=== PATIENT | female | born 1950 | race African-American/Black ===

== ENCOUNTER 2018-02-06 07:00 | Day surgery (SDC) | payer OTHER, BC ==
[2018-02-05 17:32] VITALS: BMI 32.9
--- NOTE | 2018-02-06 08:37 | HP ---
History & Physical Update - History History: No Change - Physical Physical: No Change - Assessment Assessment: No Change - Plan Plan: No Change (in agreement with Dr Urrutia; Consent signed and witnessed All questions answered)
--- NOTE | 2018-02-06 08:38 | OP ---
Operative Note - Note: Operative Date: 02/06/18 Pre-Operative Diagnosis: 67yo P2 with Thick endometrium, Family history of uterine and breast CA Operation: Hysteroscopy, Cervical polypectomy, D&C Post-Operative Diagnosis: Same as Pre-op Surgeon: Shaylee Bazan Anesthesiologist/EDGE BRUSHER: Link Ma Anesthesia: MAC Specimens Removed: 1. Cervical polyp. 2. Endometrial curettings Estimated Blood Loss (mls): 10 Instrument used (Debridements only): Symphion hysteroscope Drains & Tubes with Location: Fluid defficit - 0cc Drains, Volume Out (mls): 30 Fluid Volume Replaced (mls): 300 Operative Report Dictated: Yes
[2018-02-06] MEDS ORDERED: ONDANSETRON 4 MG/2 ML VIAL IVPUSH PRN (08:39)
[2018-02-06] MEDS ORDERED: IBUPROFEN 800 MG/8 ML IJ IVPB PRN (08:39)
[2018-02-06] MEDS ORDERED: oxyCODONE HCL 5 MG TABLET PO PRN (08:39)
[2018-02-06] MEDS ORDERED: IBUPROFEN 600 MG TABLET (FP) PO PRN (08:39)
[2018-02-06] MEDS ORDERED: ELECTROLYTE-148 SOLN 1,000 ML IV SCH (08:45)
[2018-02-06] MEDS ORDERED: PROPOFOL 20 ML ONE (08:51)
[2018-02-06] MEDS ORDERED: MIDAZOLAM HCL 2 MG/2 ML SINGLE DOSE VIAL ONE (08:51)
[2018-02-06] MEDS ORDERED: LIDOCAINE HCL/PF 2% SDV 5ML VIAL ONE ×2 (08:52→09:00)
[2018-02-06] MEDS ORDERED: KETOROLAC TROMETHAMINE 30 MG/1 ML VIAL ONE (09:00)
[2018-02-06] MEDS ORDERED: DEXAMETHASONE SOD PHOSPHATE 4 MG/1 ML VIAL ONE (09:00)
[2018-02-06] MEDS ORDERED: LIDOCAINE HCL 2% JELLY (5 ML/TUBE) ONE (09:00)
[2018-02-06] MEDS ORDERED: LACTATED RINGERS SOLUTION 1,000 ML IV SCH (09:45)
[2018-02-06 12:56] VITALS: BP 137/65; PULSE 56; TEMP 98.2
--- NOTE | 2018-02-06 23:45 | OP ---
DATE OF OPERATION: 02/06/2018 PREOPERATIVE DIAGNOSIS: A 37-year-old, para 2, with thick endometrium, family history of uterine and breast cancer. OPERATION: Hysteroscopy, cervical polypectomy, dilation and curettage. POSTOPERATIVE DIAGNOSIS: A 37-year-old, para 2, with thick endometrium, family history of uterine and breast cancer. SURGEON: Shaylee Bazan MD ANESTHESIOLOGIST: Link Ma MD ANESTHESIA: MAC. SPECIMENS REMOVED: Cervical polyp and endometrial curettings. DESCRIPTION OF THE OPERATIVE PROCEDURE: After assuring informed consent, the patient was brought to the operating room where she was placed in dorsal lithotomy position. Perineum and vagina were prepped and draped in the sterile fashion. Symphion hysteroscope was assembled, balanced, and primed. Vagina was retracted with Ramesh retractors and cervix was articulated with single-toothed tenaculum and gradually dilated with increasing in size dilators. A 6.3-mm hysteroscope was introduced atraumatically with good visualization of cervical and uterine contents. Uterus was found to be intact; atrophic, free of polyps. Only cervical polyp was visualized. Hysteroscope was removed and sharp cervical and endocervical curettage was performed. Cervical polyp removed with the curette. Hysteroscope was reintroduced. Uterine contents were visualized once more. Bilateral ostia were visualized. Uterus was found to be empty of any structures. Instruments were all removed from the uterus, cervix, and vagina. Sponge and instrument count was correct x2. Patient's estimated blood loss was 10 mL. Fluid deficit was zero. Urine output: 30 mL. The patient received 300 mL of fluid. Patient was placed into the supine position and was brought to the recovery room in stable condition. Wyatt [id number]
--- NOTE | 2018-02-07 16:40 | PATH ---
Surgical Pathology Report Patient Name: ERIN TURNER [facility]. Rec. #: [id number] /Age/Gender: 1950 (Age: 67) / F Account: [id number] Location: [facility] SURGICAL Taken: 02/06/2018 Received: 02/06/2018 Reported: 02/07/2018 Physicians: Shaylee Bazan M.D. Specimen(s) Received A: ENDOMETRIAL CURETTINGS B: ENDOCERVICAL POLYP Clinical History Endometrial polyp Final Diagnosis A. ENDOMETRIAL CURETTINGS, DILATION AND CURETTAGE: STRIPS OF ENDOMETRIAL GLANDS CONSISTENT WITH ATROPHIC ENDOMETRIUM, BENIGN CERVICAL TISSUE, SUPERFICIAL MYOMETRIUM, ADMIXED WITH BLOOD AND MUCUS. B. ENDOCERVICAL CURETTINGS, DILATION AND CURETTAGE: FRAGMENTS OF LOWER UTERINE SEGMENT AND BENIGN CERVICAL SQUAMOUS MUCOSA. Electronically Signed Patricia Horton M.D. Gross Description A. Received in formalin labeled "endometrial curetting," is a 2.1 x 1.6 x 0.3 cm aggregate of diaz-pink soft tissue fragments admixed with blood-tinged mucous. The formalin is filtered and the specimen is entirely submitted in one cassette. B. Received in formalin labeled "endocervical," is a 1.1 x 0.7 x 0.2 cm aggregate of diaz-pink soft tissue fragments. The formalin is filtered and the specimen is entirely submitted in one cassette. /02/06/2018 saudi02/06/2018
== END 2018-02-06 12:56 | disposition home or self-care (01) ==
LOC: JASU-SURG 07:00
PROVIDERS: ATTEND Obstetrics & Gynecology
PROC: 0UDB7ZX Extraction of Endometrium, Via Natural or Artificial Opening, Diagnostic (ICD-10-PCS; 2018-02-06)
PROC: 0UJD8ZZ Inspection of Uterus and Cervix, Via Natural or Artificial Opening Endoscopic (ICD-10-PCS; 2018-02-06)
PROC: 0UBC7ZX Excision of Cervix, Via Natural or Artificial Opening, Diagnostic (ICD-10-PCS; principal; 2018-02-06 09:00)
PROC: 0UB97ZX Excision of Uterus, Via Natural or Artificial Opening, Diagnostic (ICD-10-PCS; 2018-02-06 09:00)
DX: N85.00 Endometrial hyperplasia, unspecified (principal); Z80.3 Family history of malignant neoplasm of breast; Z80.8 Family history of malignant neoplasm of other organs or systems; N84.1 Polyp of cervix uteri
CPT/HCPCS: 88305-TC; 94760